=== PATIENT | female | born 1945 | race Caucasian/White ===

== ENCOUNTER 2018-09-19 05:11 | Inpatient (IN) | payer MEDICARE, BC ==
[2018-09-19] MEDS ORDERED: METHYLPREDNISOLONE PF 125MG/VIAL IVP ONE (05:26)
--- NOTE | 2018-09-19 05:30 | Emergency Department Record ---
History of Present Illness - General Chief Complaint: Shortness of breath Stated Complaint: COPD Time Seen by Provider: 09/19/18 05:23 Source: Patient, EMS Mode of Arrival: Ambulatory Limitations: No limitations - History of Present Illness Initial Comments: 73 yo female presents to ED for evaluation of difficulty in breathing symptoms which began this morning. Patient reports wet cough, denies fevers/chills. Patient reports previous history of COPD, stopped smoking 1 months ago. Patient denies chest discomfort or pain symptoms. Patient denies lower extremity edema/calf pain, denies history of COPD. MD Complaint: Shortness of breath Onset/Timin -: Days(s) Severity: Moderate Quality: Aching Consistency: Constant Improves With: Nothing Worsens With: Lying flat Known History Of: COPD Associated Symptoms: Cough Treatments Prior to Arrival: Oxygen - Related Data Home Oxygen Therapy: No Home Medications Medication Instructions Recorded Confirmed Last Taken Amlodipine Besylate [Norvasc] 5 mg PO DAILY 09/19/18 09/19/18 Unknown Atorvastatin Calcium 40 mg PO DAILY 09/19/18 09/19/18 Unknown Fluticasone Propion/Salmeterol 2 puff INH DAILY 09/19/18 09/19/18 Unknown [Fluticasone-Salmeterol 250-50] Pramipexole Di-HCl [Mirapex] 0.25 mg PO DAILY 09/19/18 09/19/18 Unknown Tiotropium [place] [Spiriva 1 puff INH DAILY 09/19/18 09/19/18 Unknown Respimat] Allergies Allergy/AdvReac Type Severity Reaction Status Date / Time amoxicillin [From Augmentin] AdvReac "thrush" Verified 09/19/18 05:14 clavulanic acid AdvReac "thrush" Verified 09/19/18 05:14 [From Augmentin] Travel Screening - Travel/Exposure Within Last 30 Days Have you traveled within the last 30 days?: No Review of Systems Constitutional: Denies: Chills, Fever, Malaise, Night sweats Eyes: Denies: Eye discharge, Eye pain ENT: Denies: Congestion, Ear pain, Epistaxis Respiratory: Reports: Cough, Dyspnea Cardiovascular: Denies: Chest pain, Dyspnea on exertion, Edema, Palpitations Endocrine: Denies: Fatigue, Heat or cold intolerance Gastrointestinal: Denies: Abdominal pain, Nausea, Vomiting Genitourinary: Denies: Incontinence, Retention Musculoskeletal: Denies: Arthralgia, Back pain Skin: Denies: Bruising, Change in color Neurological: Denies: Abnormal gait, Confusion, Headache, Seizure Psychiatric: Denies: Anxiety Hematological/Lymphatic: Denies: Anemia, Blood Clots Past Medical History - SOCIAL HISTORY Smoking Status: Former smoker Alcohol Use: None Drug Use: None - RESPIRATORY Hx Respiratory Disorders: Yes Hx COPD: Yes - CARDIOVASCULAR Hx Cardio Disorders: Yes Hx Hypertension: Yes - NEURO Hx Neuro Disorders: No - GI Hx GI Disorders: Yes Hx Abdominal Pain: Yes Hx Reflux: Yes Hx Ulcer: Yes Hx of Polyps: Yes - Hx Genitourinary Disorders: No - ENDOCRINE Hx Endocrine Disorders: No - MUSCULOSKELETAL Hx Musculoskeletal Disorders: Yes Hx Arthritis: Yes Hx Back Injury: Yes Hx Musculoskeletal Disease: Yes - PSYCH Hx Psych Problems: Yes Hx Depression: Yes - HEMATOLOGY/ONCOLOGY Hx Hematology/Oncology Disorders: No Family Medical History Any Significant Family History?: Yes Hx Diabetes: Grandparents Hx HTN: Father Hx Stroke: Father Physical Exam - General General Appearance: Alert, Oriented x3, Cooperative, Moderate distress Limitations: No limitations - Head Head exam: Atraumatic, Normocephalic, Normal inspection Head exam detail: negative: Abrasion, Contusion, Mishra's sign, General tenderness, Hematoma, Laceration - Eye Eye exam: Normal appearance. negative: Conjunctival injection, Periorbital swelling, Periorbital tenderness, Scleral icterus - ENT Ear exam: negative: Auricular hematoma, Auricular trauma Nasal Exam: negative: Active bleeding, Discharge, Dried blood, Foreign body Mouth exam: negative: Drooling, Laceration, Muffled voice, Tongue elevation - Neck Neck exam: Normal inspection. negative: Meningismus, Tenderness - Respiratory Respiratory exam: Decreased breath sounds, Respiratory distress. negative: Rhonchi, Stridor, Wheezes - Cardiovascular Cardiovascular Exam: Normal rhythm, Normal heart sounds, Tachycardia - GI/Abdominal GI/Abdominal exam: Soft. negative: Rebound, Rigid, Tenderness - Rectal Rectal exam: Deferred - exam: Deferred - Extremities Extremities exam: Normal inspection. negative: Pedal edema, Tenderness - Back Back exam: Denies: CVA tenderness (R), CVA tenderness (L) - Neurological Neurological exam: Alert, Normal gait, Oriented X3 - Psychiatric Psychiatric exam: Normal affect, Normal mood - Skin Skin exam: Normal color. negative: Abrasion Type of lesion: negative: abrasion Course Vital Signs 09/19/18 05:13 Temperature 98.6 F Pulse Rate 101 H Respiratory 24 Rate Blood Pressure 145/73 Pulse Ox 86 L - Reevaluation(s) Reevaluation #1: 09/19/18 06:16 Laboratory studies were reviewed and appear grossly unremarkable for an acute process. CXR: No acute process Patient was updated on all results, will admit for hypoxia resulting likely from COPD exacerbation. Reevaluation #2: 09/19/18 06:25 EKG: NSR 97 Normal axis Normal intervals No acute ST-T wave changes present Patient was updated on all results, will admit for further evaluation and treatment. Case was discussed with Lisa Mckinnon NP, will accept admission at this time. Medical Decision Making - Lab Data Result diagrams: 09/19/18 05:20 09/19/18 05:20 Disposition Disposition: Admit Clinical Impression: COPD exacerbation, Hypoxia Disposition: Still a Patient at [facility] Decision to Admit: Admit from ER Decision to Admit Date: 09/19/18 Decision to Admit Time: 06:18 Condition: (2) Stable Forms: Patient Portal Access Time of Disposition: 06:18 Quality - Quality Measures Quality Measures: N/A - Blood Pressure Screening Does Patient Have Any of the Following: Active Dx of HTN Blood Pressure Classification: Hypertensive Reading Systolic Measurement: 145 Diastolic Measurement: 73 Screening for High Blood Pressure: Patient Exclusion, Hx of HTN [[id number]]
[2018-09-19 05:32] LABS: ABSOLUTE NEUTROPHIL COUNT 5.06; BASO % 0.4 % (0-6); EOS % 0.1 % (0-6); GRAN % 71.8 % (47-80); HEMATOCRIT 44.8 % (35.0-47.0); HEMOGLOBIN 14.5 gm/dl (11.6-16.0); LYMPH % 14.8 % (16-45); MEAN CELL VOLUME 97.4 fl (81-97); MEAN CORPUSCULAR HEMOGLOBIN 31.5 pg (27-33); MEAN CORPUSCULAR HGB CONC 32.4 g/dl (32-36); MEAN PLATELET VOLUME 13.3 fl (7.4-10.4); MONO % 12.9 % (0-9); PLATELET COUNT 119 K/uL (130-400); RED CELL DISTRIBUTION WIDTH 14.4 % (11.5-14.5); WHITE BLOOD COUNT W/O DIFF 7.1 K/uL (4.2-12.2)
[2018-09-19] MEDS: IPRATROPIUM/ALBUTEROL (0.5MG/3MG) NEB INH SCH ×7 (05:36→22:22)
[2018-09-19 05:43] LABS: BLOOD UREA NITROGEN 11 mg/dL (8-23); CREATININE 0.7 mg/dL (0.5-0.9); EST GLOMERULAR FILTRATION RATE > 60 mL/min; TOTAL PROTEIN 7.1 g/dL (6.6-8.7)
[2018-09-19 05:45] LABS: GLUCOSE,RANDOM 123 mg/dL (74-109)
[2018-09-19 05:48] LABS: ALB/GLOB RATIO 1.3 (1.1-1.8); ALKALINE PHOSPHATASE 84 U/L (35-104); ALT/SGPT 12 U/L (<33); AST/SGOT 18 U/L (10.0-35.0)
[2018-09-19] MEDS ORDERED: ACETAMINOPHEN PO PRN (07:47)
[2018-09-19] MEDS ORDERED: TRAMADOL HCL PO PRN (07:47)
[2018-09-19] MEDS ORDERED: ALBUTEROL SULFATE (0.083%) 2.5 MG/3 ML NEB INH PRN (07:47)
[2018-09-19] MEDS: 0.9 % SODIUM CHLORIDE 1000ML 1,000 ML IV PRN ×2 (07:54→15:58)
[2018-09-19] MEDS: PANTOPRAZOLE SODIUM 40 MG TABLET PO SCH (09:58)
[2018-09-19] MEDS ORDERED: BREO (FLUTICASONE/VILANTEROL) 200MCG/25MCG INHALER INH SCH (10:00)
[2018-09-19] MEDS ORDERED: AMLODIPINE BESYLATE 5MG TAB PO SCH (10:00)
[2018-09-19] MEDS ORDERED: ATORVASTATIN 20 MG TABLET PO SCH (10:00)
[2018-09-19] MEDS ORDERED: UMECLIDINIUM BROMIDE (INCRUSE) 62.5MCG IH SCH (10:00)
--- NOTE | 2018-09-19 12:24 | RADIOLOGY REPORT ---
EXAM: CHEST, TWO VIEWS HISTORY: DIFFICULTY IN BREATHING. COUGH AND CONGESTION. TECHNIQUE: Upright PA and lateral views of the chest were obtained. Comparison: Left ribs with PA chest dated 11/02/14. FINDINGS: The heart is not enlarged and the pulmonary vasculature is nondilated. The thoracic aorta remains tortuous and atherosclerotic, not grossly changed given differences in technique. The lungs appear mildly hyperinflated. Minor reticular opacity prominence is questioned in the lateral lung bases likely relating to mild chronic interstitial change. No lung consolidation, costophrenic angle blunting or pneumothorax. There are compression deformities scattered throughout the thoracic spine. These do not appear grossly changed since prior CT thoracic spine examination dated 08/25/18. IMPRESSION: 1. HYPERINFLATION OF THE LUNGS REDEMONSTRATED CONSISTENT WITH COPD. NO CONVINCING EVIDENCE OF AN ACUTE INTRATHORACIC PROCESS. 2. TORTUOUS ATHEROSCLEROTIC THORACIC AORTA REDEMONSTRATED. 3. COMPRESSION DEFORMITIES OF MULTIPLE THORACIC VERTEBRAL BODIES REDEMONSTRATED, NO GROSSLY CHANGED SINCE 08/25/18 CT THORACIC SPINE EXAMINATION. JOB NUMBER: [id number] [facility]
[2018-09-19] MEDS: BENZONATATE 100 MG CAPSULE PO PRN (13:27)
--- NOTE | 2018-09-19 17:31 | History & Physical ---
History of Present Illness - Date of Service Date of Service for History & Physical: 09/19/18 - History of Present Illness Admitting Diagnosis: COPD exacerbation. Hypoxia History of Present Illness: Kim Garcia is a 73 y.o. F who presented to the ED d/t DMITRY which began in the morning on 09/18/18. Reported that she had a wet cough with lots of sputum and a sore throat as well. Denied fever/chills. Hx of COPD with 1 exacerbation in the past, stopped smoking 1 month ago. Does not follow with a play reader. Does not use home oxygen or nebulizers. Denies having been around any known sick contacts. Of note, pt states that she does have a thoracic aortic aneurysm that her PCP is watching. States she was to have a "bunch of CT scans" done today as ordered by PCP. PMHx: COPD, HTN, Thoracic aortic aneurysm, GERD, OA. PCP: Dr. Bruner ED Course Vitals: T 98.6, HR 101, RR 24, BP 145/73, SPO2 86% on RA CXR: Hyperinflation, c/w COPD Labs: Unremarkable. WBC 7.1, GFR >60, Trops Neg. EKG: NSR, no acute ST-T wave changes present 09/19/18 1730 Vitals: T 99.4, HR 89, BP 123/67, RR 20, SpO2 92% on 3L NC Sitting in bed, eating dinner. A&Ox3. Reports that she feels just slightly better than she did earlier today and yesterday. Refusing to take Norvasc and Lipitor as she was recently placed on these by her PCP and feels that these are causing her problems. Wants to go home but SPO2 92% on 3L O2. Reports that cough is dry right now, hasn't been coughing anything up since coming to the unit. Doesn't feel any nasal congestion. Travel Screening - Travel/Exposure Within Last 30 Days Have you traveled within the last 30 days?: No - Travel/Exposure Within Last Year Have you traveled outside the [place] in the last year?: No - Additonal Travel Details Have you been exposed to anyone with a communicable illness?: No Review of Systems Reviewed: No additional complaints except as noted below Constitutional: Denies: Chills, Fever, Malaise, Night sweats Eyes: Denies: Eye discharge, Eye pain ENT: Denies: Congestion, Ear pain, Epistaxis Respiratory: Reports: Cough, Dyspnea Cardiovascular: Denies: Chest pain, Dyspnea on exertion, Edema, Palpitations Endocrine: Denies: Fatigue, Heat or cold intolerance Gastrointestinal: Denies: Abdominal pain, Nausea, Vomiting Genitourinary: Denies: Incontinence, Retention Musculoskeletal: Denies: Arthralgia, Back pain Skin: Denies: Bruising, Change in color Neurological: Denies: Abnormal gait, Confusion, Headache, Seizure Psychiatric: Denies: Anxiety Hematological/Lymphatic: Denies: Anemia, Blood Clots Past Medical History - SOCIAL HISTORY Smoking Status: Former smoker - RESPIRATORY Hx Respiratory Disorders: Yes Hx COPD: Yes - CARDIOVASCULAR Hx Cardio Disorders: Yes Hx Hypertension: Yes - NEURO Hx Neuro Disorders: No - GI Hx GI Disorders: Yes Hx Abdominal Pain: Yes Hx Reflux: Yes Hx Ulcer: Yes Hx of Polyps: Yes - Hx Genitourinary Disorders: No - ENDOCRINE Hx Endocrine Disorders: No - MUSCULOSKELETAL Hx Musculoskeletal Disorders: Yes Hx Arthritis: Yes Hx Back Injury: Yes Hx Musculoskeletal Disease: Yes - PSYCH Hx Psych Problems: Yes Hx Depression: Yes - HEMATOLOGY/ONCOLOGY Hx Hematology/Oncology Disorders: No Family Medical History Any Significant Family History?: Yes Hx Diabetes: Grandparents Hx HTN: Father Hx Stroke: Father H&P Meds/Allergies - Allergies Allergies: Allergies Allergy/AdvReac Type Severity Reaction Status Date / Time amoxicillin [From Augmentin] AdvReac "thrush" Verified 09/19/18 05:14 clavulanic acid AdvReac "thrush" Verified 09/19/18 05:14 [From Augmentin] - Home Medications Home Medications Medication Instructions Recorded Confirmed Last Taken Amlodipine Besylate [Norvasc] 5 mg PO DAILY 09/19/18 09/19/18 Unknown Atorvastatin Calcium 40 mg PO DAILY 09/19/18 09/19/18 Unknown Fluticasone Propion/Salmeterol 2 puff INH DAILY 09/19/18 09/19/18 Unknown [Fluticasone-Salmeterol 250-50] Pramipexole Di-HCl [Mirapex] 0.25 mg PO DAILY 09/19/18 09/19/18 Unknown Tiotropium [place] [Spiriva 1 puff INH DAILY 05/17/19 05/17/19 Unknown Respimat] - Active Medications Active Medications: Current Medications Albuterol Sulfate (Albuterol Sulfate) 2.5 mg INH RESP.Q2H PRN PRN Reason: DIFFICULTY IN BREATHING Albuterol/Ipratropium (Duoneb) 3 ml INH RESP.Q4H.[facility] Last Admin: 09/19/18 14:06 Dose: 3 ml Documented by: Amlodipine Besylate (Norvasc) 5 mg PO QHS [facility] Atorvastatin Calcium (Lipitor) 40 mg PO QHS [facility] Benzonatate (Tessalon) 100 mg PO TID PRN PRN Reason: COUGH Last Admin: 09/19/18 13:27 Dose: 100 mg Documented by: Sodium Chloride () 1,000 mls @ 100 mls/hr IV .Q10H PRN PRN Reason: LARGE VOLUME IV Last Admin: 09/19/18 15:58 Dose: 100 mls/hr Documented by: Methylprednisolone Sodium Succinate (Solu-Medrol) 60 mg IVP DAILY [facility] Pantoprazole Sodium (Protonix) 40 mg PO DAILYAC [facility] Last Admin: 09/19/18 09:58 Dose: 40 mg Documented by: Pramipexole Dihydrochloride (Pramipexole Dihydrochloride) 0.25 mg PO QHS [facility] Tramadol HCl (Ultram) 50 mg PO Q6H PRN PRN Reason: PAIN - MILD TO MODERATE (1-7) Physical Exam - Vital Signs Vital Signs: Vital Signs - Last 24 Hrs Temp Pulse Pulse Resp BP BP Pulse Ox 09/19/18 14:06 88 18 93 L 09/19/18 11:08 88 18 92 L 09/19/18 10:22 81 20 95 09/19/18 07:47 99.4 F 89 20 123/67 92 L 09/19/18 07:46 89 20 93 L 09/19/18 06:30 98 H 20 130/80 95 09/19/18 05:45 88 24 117/76 93 L 09/19/18 05:36 102 H 12 94 L 09/19/18 05:13 98.6 F 101 H 24 145/73 86 L - General General Appearance: Alert, Oriented x3, Cooperative, Mild distress (speaking in multiple word sentences with ease) Limitations: No limitations - Head Head exam: Atraumatic, Normocephalic, Normal inspection Head exam detail: negative: Abrasion, Contusion, Mishra's sign, General tenderness, Hematoma, Laceration - Eye Eye exam: Normal appearance. negative: Conjunctival injection, Periorbital swelling, Periorbital tenderness, Scleral icterus - ENT Ear exam: negative: Auricular hematoma, Auricular trauma Nasal Exam: negative: Active bleeding, Discharge, Dried blood, Foreign body Mouth exam: negative: Drooling, Laceration, Muffled voice, Tongue elevation - Neck Neck exam: Normal inspection. negative: Meningismus, Tenderness - Respiratory Respiratory exam: Decreased breath sounds, Wheezes (RUL). negative: Rhonchi, Stridor - Cardiovascular Cardiovascular Exam: Normal rhythm, Normal heart sounds - GI/Abdominal GI/Abdominal exam: Soft. negative: Rebound, Rigid, Tenderness - Rectal Rectal exam: Deferred - exam: Deferred - Extremities Extremities exam: Normal inspection. negative: Pedal edema, Tenderness - Back Back exam: Denies: CVA tenderness (R), CVA tenderness (L) - Neurological Neurological exam: Alert, Normal gait, Oriented X3 - Psychiatric Psychiatric exam: Normal affect, Normal mood - Skin Skin exam: Normal color. negative: Abrasion Type of lesion: negative: abrasion Results - Labs Result Diagrams: 09/19/18 05:20 09/19/18 05:20 Labs Last 24 Hours: Laboratory Results - last 24 hr 09/19/18 09/19/18 05:20 05:20 WBC 7.1 RBC 4.60 Hgb 14.5 Hct 44.8 MCV 97.4 H MCH 31.5 MCHC 32.4 RDW 14.4 Plt Count 119 L MPV 13.3 H Gran % 71.8 Lymphocytes % 14.8 L Monocytes % 12.9 H Eosinophils % 0.1 Basophils % 0.4 Absolute Neutrophils 5.06 Sodium 139 Potassium 4.0 Chloride 98 Carbon Dioxide 29.0 Anion Gap 12.0 BUN 11 Creatinine 0.7 Estimated GFR > 60 Random Glucose 123 H Calcium 8.8 Total Bilirubin 0.60 AST 18 ALT 12 Alkaline Phosphatase 84 Troponin T < 0.010 Total Protein 7.1 Albumin 4.0 Globulin 3.1 Albumin/Globulin Ratio 1.3 VTE H&P Assessment - Risk for VTE Risk for VTE: Yes Risk Level: High Risk Assessment Date: 09/19/18 Risk Assessment Time: 17:30 VTE Orders Placed or Will Be Placed: Yes Plan - Detailed Diagnosis and Plan (1) COPD exacerbation Current Visit: Yes Status: Acute Base Code: J44.1 - CHRONIC OBSTRUCTIVE PULMONARY DISEASE W (ACUTE) EXACERBATION Comment: 09/19/18 -SpO2 86% on RA in ER now 92% on 3L NC -CXR: Hyperinflation c/w COPD -Duonebs per RT q. 4 hours while awake -Pulmicort BID per RT -No increased mucus production or purulence at this time, on dyspnea and hypoxia. -No indication for antibiotic at this time -IV Solumedrol 125mg daily (2) Hypoxia Current Visit: Yes Status: Acute Base Code: R09.02 - HYPOXEMIA Comment: 09/19/18 -86% RA on arrival to ED -92% on 3L NC -No home oxygen -Continue nebulizers, IV steroids and working to wean down off of O2 (3) Dry cough Current Visit: Yes Status: Acute Base Code: R05 - COUGH Comment: 09/19/18 -CXR: No acute process -WBC 7.1 -Tessalon Perles 100mg PO TID PRN (4) Full code status Current Visit: Yes Status: Acute Base Code: Z78.9 - OTHER SPECIFIED HEALTH STATUS Comment: 09/19/18 -Full code this admission (5) DVT prophylaxis Current Visit: Yes Status: Acute Base Code: Z29.9 - ENCOUNTER FOR PROPHYLACTIC MEASURES, UNSPECIFIED Comment: 09/19/18 -High risk d/t age and comorbidities -Nursing to encourage ambulation -SCDs while in bed
[2018-09-19] MEDS ORDERED: BUDESONIDE 0.5 MG/2 ML INH SCH (18:00)
[2018-09-19] MEDS: BUDESONIDE 0.5 MG/2 ML INH SCH (21:40)
[2018-09-19] MEDS: AMLODIPINE BESYLATE 5MG TAB PO SCH (22:18)
[2018-09-19] MEDS: PRAMIPEXOLE DI-HCL 0.25 MG TABLET PO SCH (22:18)
[2018-09-19] MEDS: ATORVASTATIN 20 MG TABLET PO SCH (22:18)
[2018-09-20] MEDS: PANTOPRAZOLE SODIUM 40 MG TABLET PO SCH (06:47)
[2018-09-20] MEDS: IPRATROPIUM/ALBUTEROL (0.5MG/3MG) NEB INH SCH ×5 (07:37→22:53)
[2018-09-20] MEDS ORDERED: METHYLPREDNISOLONE PF 125MG/VIAL IVP SCH ×2 (10:00)
[2018-09-20] MEDS ORDERED: METHYLPREDNISOLONE PF 125MG/VIAL IVP ONE (10:00)
[2018-09-20] MEDS: BUDESONIDE 0.5 MG/2 ML INH SCH ×2 (11:13→22:56)
[2018-09-20] MEDS: CEFTRIAXONE 1GM/50ML BAG IVPB SCH (12:47)
--- NOTE | 2018-09-20 16:10 | Physician Progress Note ---
Subjective - Date Date of Physician Progress Note: 09/20/18 - Subjective Subjective Comment: Sitting up at edge of bed. Daughter and sister at bedside. Reports that her work of breathing has decreased as the day has gone on, but it has not returned to baseline. Was recommended to try Bipap today for which she refused. Continues to have dry cough, not coughing up mucus although does state she has a runny nose. Denies having any pain. Restless legs are bothering her more than anything as she states she is not used to "sitting around and not doing anything." Pt ambulated in fox with RT using walker. O2 sats 92% on 2L during ambulation. Had increased work of breathing. Objective - Multidiciplinary Team Multidiciplinary Team: Nursing, RT - Vital Signs Vital Signs: Vital Signs - Last 24 Hrs Temp Pulse Pulse Resp BP Pulse Ox 09/20/18 13:41 94 H 18 94 L 09/20/18 13:24 91 H 18 96 09/20/18 12:00 97.0 F L 90 22 140/71 94 L 09/20/18 09:00 18 09/20/18 08:48 18 09/20/18 07:37 89 18 96 09/20/18 04:00 97 09/19/18 23:00 98.3 F 97 H 24 128/62 89 L 09/19/18 22:23 92 H 91 H 91 L 09/19/18 18:18 85 20 96 - General General Appearance: Alert, Oriented x3, Cooperative, Mild distress (with ambulation) Limitations: No limitations - Head Head exam: Atraumatic, Normocephalic, Normal inspection Head exam detail: negative: Abrasion, Contusion, Mishra's sign, General tenderness, Hematoma, Laceration - Eye Eye exam: Normal appearance. negative: Conjunctival injection, Periorbital swel ling, Periorbital tenderness, Scleral icterus - ENT Ear exam: negative: Auricular hematoma, Auricular trauma Nasal Exam: negative: Active bleeding, Discharge, Dried blood, Foreign body Mouth exam: negative: Drooling, Laceration, Muffled voice, Tongue elevation - Neck Neck exam: Normal inspection. negative: Meningismus, Tenderness - Respiratory Respiratory exam: Decreased breath sounds, Wheezes. negative: Rhonchi, Stridor - Cardiovascular Cardiovascular Exam: Normal rhythm, Normal heart sounds - GI/Abdominal GI/Abdominal exam: Soft. negative: Rebound, Rigid, Tenderness - Rectal Rectal exam: Deferred - exam: Deferred - Extremities Extremities exam: Normal inspection. negative: Pedal edema, Tenderness - Back Back exam: Denies: CVA tenderness (R), CVA tenderness (L) - Neurological Neurological exam: Alert, Normal gait, Oriented X3 - Psychiatric Psychiatric exam: Normal affect, Normal mood - Skin Skin exam: Normal color. negative: Abrasion Type of lesion: negative: abrasion Assessment and Plan - Assessment and Plan (1) COPD exacerbation Current Visit: Yes Status: Acute Base Code: J44.1 - CHRONIC OBSTRUCTIVE PULMONARY DISEASE W (ACUTE) EXACERBATION Comment: 09/20/18 -Able to ambulate with O2 @ 2L, SPO2 sats 92% -Duonebs per RT q. 4 hours while awake -Pulmicort BID per RT -Recommended Bipap, pt declined -No increased mucus production or purulence at this time, put continued increase work of breathing, wheezing and requirement for O2 -IV Solumedrol 125mg today, decrease to 60mg IV tomorrow -Rocephin 1 g IV daily (2) Hypoxia Current Visit: Yes Status: Acute Base Code: R09.02 - HYPOXEMIA Comment: 09/20/18 -86% RA on arrival to ED -92% on 2L with ambulation -No home oxygen -Recommend Bipap therapy, pt refused -Continue nebulizers, IV steroids, IV antibiotics and working to wean down off of O2 (3) Dry cough Current Visit: Yes Status: Acute Base Code: R05 - COUGH Comment: 09/20/18 -Continue Tessalon Perles 100mg PO TID PRN (4) Full code status Current Visit: Yes Status: Acute Base Code: Z78.9 - OTHER SPECIFIED HEALTH STATUS Comment: 09/20/18 -Full code this admission (5) DVT prophylaxis Current Visit: Yes Status: Acute Base Code: Z29.9 - ENCOUNTER FOR PROPHYLACTIC MEASURES, UNSPECIFIED Comment: 09/20/18 -High risk d/t age and comorbidities -Nursing to encourage ambulation -SCDs while in bed Results - Labs Result Diagrams: 09/19/18 05:20 09/19/18 05:20 DVT/PE Assessment - Risk for VTE Risk for VTE: No Risk Level: High Risk Assessment Date: 09/19/18 Risk Assessment Time: 17:30 VTE Orders Placed or Will Be Placed: Yes - Active Medicaitons Current Medications: Current Medications Albuterol Sulfate (Albuterol Sulfate) 2.5 mg INH RESP.Q2H PRN PRN Reason: DIFFICULTY IN BREATHING Last Admin: 09/20/18 13:24 Dose: 2.5 mg Documented by: Albuterol/Ipratropium (Duoneb) 3 ml INH RESP.Q4H.[facility] Last Admin: 09/20/18 13:24 Dose: 3 ml Documented by: Amlodipine Besylate (Norvasc) 5 mg PO QHS [facility] Last Admin: 09/19/18 22:18 Dose: Not Given Documented by: Atorvastatin Calcium (Lipitor) 40 mg PO QHS [facility] Last Admin: 09/19/18 22:18 Dose: Not Given Documented by: Benzonatate (Tessalon) 100 mg PO TID PRN PRN Reason: COUGH Last Admin: 09/19/18 13:27 Dose: 100 mg Documented by: Budesonide (Pulmicort) 0.5 mg INH 1000,2200 [facility] Last Admin: 09/20/18 11:13 Dose: Not Given Documented by: Pantoprazole Sodium (Protonix) 40 mg PO DAILYAC [facility] Last Admin: 09/20/18 06:47 Dose: 40 mg Documented by: Pramipexole Dihydrochloride (Pramipexole Dihydrochloride) 0.25 mg PO QHS [facility] Last Admin: 09/19/18 22:18 Dose: Not Given Documented by: Tramadol HCl (Ultram) 50 mg PO Q6H PRN PRN Reason: PAIN - MILD TO MODERATE (1-7) AMI Plan - Labs Result Diagrams: 09/19/18 05:20 09/19/18 05:20
[2018-09-20] MEDS: PRAMIPEXOLE DI-HCL 0.25 MG TABLET PO SCH ×2 (17:05→21:26)
--- NOTE | 2018-09-20 20:31 | Inpatient Certification ---
Inpatient Certification Admit to inpatient care: Based on my medical assessment, after consideration of patient's risk factors (age, co-morbidities and patient presenting symptoms and acuity), I expect that this patient will remain in the hospital greater than or equal to two midnights and that the services needed warrant inpatient care because: Patient Risk Factors: [Age, comorbidities] Estimated length of stay: [48-72 hours] The patient may reasonably be expected to be discharged or transferred to a hospital within 96 hours after admission to [facility]. Services needed: [IV Therapy, Respiratory Services] Post hospital care (if known): [] I certify that my determination is in accordance with my understanding of Medicare requirements for reasonable and necessary inpatient services. 09/20/18 20:30
[2018-09-20] MEDS: ATORVASTATIN 20 MG TABLET PO SCH (21:25)
[2018-09-20] MEDS: AMLODIPINE BESYLATE 5MG TAB PO SCH (21:25)
[2018-09-21] MEDS: BENZONATATE 100 MG CAPSULE PO PRN ×2 (04:44→19:54)
[2018-09-21] MEDS: PANTOPRAZOLE SODIUM 40 MG TABLET PO SCH (06:35)
[2018-09-21] MEDS: IPRATROPIUM/ALBUTEROL (0.5MG/3MG) NEB INH SCH ×6 (07:34→22:33)
[2018-09-21] MEDS: BUDESONIDE 0.5 MG/2 ML INH SCH ×3 (07:43→22:33)
[2018-09-21] MEDS: METHYLPREDNISOLONE PF 125MG/VIAL IVP SCH ×2 (08:49→09:02)
[2018-09-21] MEDS: TRAMADOL HCL 50 MG TABLET PO PRN ×2 (08:51→19:53)
[2018-09-21] MEDS: CEFTRIAXONE 1GM/50ML BAG IVPB SCH (13:36)
--- NOTE | 2018-09-21 15:33 | Physician Progress Note ---
Subjective - Date Date of Physician Progress Note: 09/21/18 - Subjective Subjective Comment: Sitting up at edge of bed. Daughter and sister at bedside. Reports that her work of breathing has decreased as the day has gone on, but it has not returned to baseline. Was recommended to try Bipap today for which she refused. Continues to have dry cough, not coughing up mucus although does state she has a runny nose. 09/20/18 Denies having any pain. Restless legs are bothering her more than anything as she states she is not used to "sitting around and not doing anything." Pt ambulated in fox with RT using walker. O2 sats 92% on 2L during ambulation. Had increased work of breathing. 09/21/18 Reports that she feels well now but that she had a hard time breathing this morning. States that she had diarrhea this a.m. and on her walk back to bed, she became extremely short of breath. RT reports that they were unable to wean off of oxygen. Pt states that she is agreeable to taking 1/2 of Norvasc and Lipitor pills. Doesn't want to take full dose as she thinks the s/e are attributing to her problems but does think she should take some of it d/t her thoracic aortic aneurysm. Reports that she quit smoking however daughter reports that she is still smoking. Objective - Multidiciplinary Team Multidiciplinary Team: Nursing, RT - Vital Signs Vital Signs: Vital Signs - Last 24 Hrs Temp Pulse Pulse Pulse Resp BP Pulse Ox 09/21/18 14:22 89 18 94 L 09/21/18 12:00 98.0 F 83 20 143/69 95 09/21/18 08:59 22 09/21/18 08:41 89 20 95 09/21/18 07:44 79 18 90 L 09/21/18 04:00 98.1 F 91 H 24 164/80 90 L 09/20/18 21:00 90 09/20/18 18:08 81 20 96 09/20/18 18:07 81 18 92 L - General General Appearance: Alert, Oriented x3, Cooperative, Mild distress (with ambulation) Limitations: No limitations - Head Head exam: Atraumatic, Normocephalic, Normal inspection Head exam detail: negative: Abrasion, Contusion, Mishra's sign, General tenderness, Hematoma, Laceration - Eye Eye exam: Normal appearance. negative: Conjunctival injection, Periorbital swelling, Periorbital tenderness, Scleral icterus - ENT Ear exam: negative: Auricular hematoma, Auricular trauma Nasal Exam: negative: Active bleeding, Discharge, Dried blood, Foreign body Mouth exam: negative: Drooling, Laceration, Muffled voice, Tongue elevation - Neck Neck exam: Normal inspection. negative: Meningismus, Tenderness - Respiratory Respiratory exam: Decreased breath sounds. negative: Rhonchi, Stridor - Cardiovascular Cardiovascular Exam: Normal rhythm, Normal heart sounds - GI/Abdominal GI/Abdominal exam: Soft. negative: Rebound, Rigid, Tenderness - Rectal Rectal exam: Deferred - exam: Deferred - Extremities Extremities exam: Normal inspection. negative: Pedal edema, Tenderness - Back Back exam: Denies: CVA tenderness (R), CVA tenderness (L) - Neurological Neurological exam: Alert, Normal gait, Oriented X3 - Psychiatric Psychiatric exam: Normal affect, Normal mood - Skin Skin exam: Normal color. negative: Abrasion Type of lesion: negative: abrasion Assessment and Plan - Assessment and Plan (1) COPD exacerbation Current Visit: Yes Status: Acute Base Code: J44.1 - CHRONIC OBSTRUCTIVE PULMONARY DISEASE W (ACUTE) EXACERBATION Comment: 09/21/18 -Able to ambulate with O2 @ 2L, SPO2 sats 92% -Duonebs per RT q. 4 hours while awake -Pulmicort BID per RT -Recommended Bipap, pt declined -No increased mucus production or purulence at this time, put continued increase work of breathing, wheezing and requirement for O2 -IV Solumedrol 60mg today, will start Prednisone 50mg tomorrow -Rocephin 1 g IV daily -Likely d/c tomorrow, may need to do home qualifier for home O2 (2) Hypoxia Current Visit: Yes Status: Acute Base Code: R09.02 - HYPOXEMIA Comment: 09/21/18 -86% RA on arrival to ED -92% on 2L with ambulation -No home oxygen -Recommend Bipap therapy, pt refused -Continue nebulizers, IV steroids, IV antibiotics and working to wean down off of O2 -Likely D/C tomorrow, may need to consider home qualifer for O2 (3) Dry cough Current Visit: Yes Status: Acute Base Code: R05 - COUGH Comment: 09/21/18 -Continue Tessalon Perles 100mg PO TID PRN (4) Full code status Current Visit: Yes Status: Acute Base Code: Z78.9 - OTHER SPECIFIED HEALTH STATUS Comment: 09/21/18 -Full code this admission (5) DVT prophylaxis Current Visit: Yes Status: Acute Base Code: Z29.9 - ENCOUNTER FOR PROPHYLACTIC MEASURES, UNSPECIFIED Comment: 09/21/18 -High risk d/t age and comorbidities -Nursing to encourage ambulation -SCDs while in bed (6) Thoracic aortic aneurysm Current Visit: Yes Status: Acute Base Code: I71.2 - THORACIC AORTIC A NEURYSM, WITHOUT RUPTURE Comment: 09/21/18 -Discussed need to f/u with PCP to get referral to [facility] (as pt was inquiring on how to do this) -Stated that PCP put her on Norvasc and Lipitor for the aneurysm. Is unwilling to take full dose but will take half. -Changed Lipitor to 20mg q. HS -Changed Norvac to 2.5mg q. HS Results - Labs Result Diagrams: 09/19/18 05:20 09/19/18 05:20 DVT/PE Assessment - Risk for VTE Risk for VTE: Yes Risk Level: High Risk Assessment Date: 09/19/18 Risk Assessment Time: 17:30 VTE Orders Placed or Will Be Placed: Yes - Active Medicaitons Current Medications: Current Medications Albuterol Sulfate (Albuterol Sulfate) 2.5 mg INH RESP.Q2H PRN PRN Reason: DIFFICULTY IN BREATHING Last Admin: 09/20/18 13:24 Dose: 2.5 mg Documented by: Albuterol/Ipratropium (Duoneb) 3 ml INH RESP.Q4H.[facility] Last Admin: 09/21/18 14:22 Dose: 3 ml Documented by: Amlodipine Besylate (Norvasc) 5 mg PO QHS [facility] Last Admin: 09/20/18 21:25 Dose: Not Given Documented by: Atorvastatin Calcium (Lipitor) 40 mg PO QHS [facility] Last Admin: 09/20/18 21:25 Dose: Not Given Documented by: Benzonatate (Tessalon) 100 mg PO TID PRN PRN Reason: COUGH Last Admin: 09/21/18 04:44 Dose: 100 mg Documented by: Budesonide (Pulmicort) 0.5 mg INH 1000,2200 [facility] Last Admin: 09/21/18 09:27 Dose: 0.5 mg Documented by: Pantoprazole Sodium (Protonix) 40 mg PO DAILYAC [facility] Last Admin: 09/21/18 06:35 Dose: 40 mg Documented by: Pramipexole Dihydrochloride (Pramipexole Dihydrochloride) 0.25 mg PO QHS [facility] Last Admin: 09/20/18 21:26 Dose: Not Given Documented by: Tramadol HCl (Ultram) 50 mg PO Q6H PRN PRN Reason: PAIN - MILD TO MODERATE (1-7) Last Admin: 09/21/18 08:51 Dose: 50 mg Documented by: AMI Plan - Labs Result Diagrams: 09/19/18 05:20 09/19/18 05:20
[2018-09-21] MEDS: NICOTINE14 MG/24 HOUR PATCH TD SCH (17:05)
[2018-09-21] MEDS: PRAMIPEXOLE DI-HCL 0.25 MG TABLET PO SCH ×2 (17:06→21:08)
[2018-09-21] MEDS: AMLODIPINE BESYLATE 5MG TAB PO SCH ×2 (17:12→18:00)
[2018-09-21] MEDS: NYSTATIN 100,000 UNITS/ML 5ML CUP PO SCH ×2 (17:59→21:08)
[2018-09-21] MEDS: ATORVASTATIN 20 MG TABLET PO SCH (21:09)
[2018-09-22] MEDS: IPRATROPIUM/ALBUTEROL (0.5MG/3MG) NEB INH SCH ×5 (05:39→21:49)
[2018-09-22] MEDS: PANTOPRAZOLE SODIUM 40 MG TABLET PO SCH (06:04)
[2018-09-22 06:32] LABS: HEMOGLOBIN 14.5 gm/dl (11.6-16.0); MEAN CELL VOLUME 99.4 fl (81-97); MEAN CORPUSCULAR HEMOGLOBIN 30.7 pg (27-33); MEAN CORPUSCULAR HGB CONC 30.9 g/dl (32-36); MEAN PLATELET VOLUME 12.7 fl (7.4-10.4); PLATELET COUNT 127 K/uL (130-400); RED BLOOD COUNT 4.73 M/uL (3.80-5.40); RED CELL DISTRIBUTION WIDTH 14.1 % (11.5-14.5); WHITE BLOOD COUNT W/O DIFF 9.3 K/uL (4.2-12.2)
[2018-09-22 06:46] LABS: BLOOD UREA NITROGEN 15 mg/dL (8-23); CREATININE 0.5 mg/dL (0.5-0.9); EST GLOMERULAR FILTRATION RATE > 60 mL/min; GLUCOSE,RANDOM 95 mg/dL (74-109)
[2018-09-22 07:06] LABS: ABSOLUTE NEUTROPHIL COUNT 5.83; PLATELET ESTIMATE NORMAL (NORMAL)
[2018-09-22] MEDS: TRAMADOL HCL 50 MG TABLET PO PRN ×2 (07:50→18:58)
[2018-09-22] MEDS: PREDNISONE 20 MG TAB PO SCH (07:52)
[2018-09-22] MEDS: BUDESONIDE 0.5 MG/2 ML INH SCH ×2 (09:36→21:49)
[2018-09-22] MEDS: NYSTATIN 100,000 UNITS/ML 5ML CUP PO SCH ×3 (10:04→18:57)
[2018-09-22] MEDS: AMLODIPINE BESYLATE 5MG TAB PO SCH ×2 (10:04→18:58)
[2018-09-22] MEDS: CEFTRIAXONE 1GM/50ML BAG IVPB SCH (13:34)
--- NOTE | 2018-09-22 13:41 | Physician Progress Note ---
Subjective - Date Date of Physician Progress Note: 09/22/18 - Subjective Subjective Comment: Sitting up at edge of bed. Daughter and sister at bedside. Reports that her work of breathing has decreased as the day has gone on, but it has not returned to baseline. Was recommended to try Bipap today for which she refused. Continues to have dry cough, not coughing up mucus although does state she has a runny nose. 09/20/18 Denies having any pain. Restless legs are bothering her more than anything as she states she is not used to "sitting around and not doing anything." Pt ambulated in fox with RT using walker. O2 sats 92% on 2L during ambulation. Had increased work of breathing. 09/21/18 Reports that she feels well now but that she had a hard time breathing this morning. States that she had diarrhea this a.m. and on her walk back to bed, she became extremely short of breath. RT reports that they were unable to wean off of oxygen. Pt states that she is agreeable to taking 1/2 of Norvasc and Lipitor pills. Doesn't want to take full dose as she thinks the s/e are attributing to her problems but does think she should take some of it d/t her thoracic aortic aneurysm. Reports that she quit smoking however daughter reports that she is still smoking. 09/22/18 Continues to report that she does not feel safe going home alone. Still feeling SOB at times and very fatigued. Ambulated with RT without oxygen and had to be put back on oxygen d/t desaturation to 85%. Denies having any pain. Objective - Multidiciplinary Team Multidiciplinary Team: Nursing, RT - Vital Signs Vital Signs: Vital Signs - Last 24 Hrs Temp Pulse Pulse Resp BP Pulse Ox 09/22/18 09:37 89 18 09/22/18 08:03 16 09/22/18 07:51 97.9 F 83 16 147/82 96 09/22/18 05:41 75 18 98 09/22/18 05:40 82 18 96 09/22/18 04:00 98.0 F 79 22 128/75 94 L 09/21/18 21:00 24 09/21/18 20:00 97.5 F L 82 24 160/85 97 09/21/18 19:06 84 18 92 L 09/21/18 14:22 89 18 94 L - General General Appearance: Alert, Oriented x3, Cooperative, Mild distress (with ambulation) Limitations: No limitations - Head Head exam: Atraumatic, Normocephalic, Normal inspection Head exam detail: negative: Abrasion, Contusion, Mishra's sign, General tenderness, Hematoma, Laceration - Eye Eye exam: Normal appearance. negative: Conjunctival injection, Periorbital swelling, Periorbital tenderness, Scleral icterus - ENT Ear exam: negative: Auricular hematoma, Auricular trauma Nasal Exam: negative: Active bleeding, Discharge, Dried blood, Foreign body Mouth exam: negative: Drooling, Laceration, Muffled voice, Tongue elevation - Neck Neck exam: Normal inspection. negative: Meningismus, Tenderness - Respiratory Respiratory exam: Wheezes. negative: Rhonchi, Stridor - Cardiovascular Cardiovascular Exam: Normal rhythm, Normal heart sounds - GI/Abdominal GI/Abdominal exam: Soft. negative: Rebound, Rigid, Tenderness - Rectal Rectal exam: Deferred - exam: Deferred - Extremities Extremities exam: Normal inspection. negative: Pedal edema, Tenderness - Back Back exam: Denies: CVA tenderness (R), CVA tenderness (L) - Neurological Neurological exam: Alert, Normal gait, Oriented X3 - Psychiatric Psychiatric exam: Normal affect, Normal mood - Skin Skin exam: Normal color. negative: Abrasion Type of lesion: negative: abrasion Assessment and Plan - Assessment and Plan (1) COPD exacerbation Current Visit: Yes Status: Acute Base Code: J44.1 - CHRONIC OBSTRUCTIVE PULMONARY DISEASE W (ACUTE) EXACERBATION Comment: 09/22/18 -SpO2 dropped to 85% when ambulating short distance on RA -At rest, maintaining O2 at 96% on 2L -Duonebs per RT q. 4 hours while awake -Pulmicort BID per RT -Recommended Bipap, pt declined -No increased mucus production or purulence at this time, put continued increase work of breathing, wheezing and requirement for O2 -Prednisone PO daily -Rocephin 1 g IV daily -Home O2 Qualifier completed -Needs nebulizer machine and Duo-nebs (2) Hypoxia Current Visit: Yes Status: Acute Base Code: R09.02 - HYPOXEMIA Comment: 09/22/18 -86% RA on arrival to ED -85% on RA with ambulation -Home O2 qualifier completed -Continue nebulizers q. 4 hours while awake -D/c on 09/23/18 with [facility] (3) Dry cough Current Visit: Yes Status: Acute Base Code: R05 - COUGH Comment: 09/22/18 -Continue Tessalon Perles 100mg PO TID PRN (4) Full code status Current Visit: Yes Status: Acute Base Code: Z78.9 - OTHER SPECIFIED HEALTH STATUS Comment: 09/22/18 -Full code this admission (5) DVT prophylaxis Current Visit: Yes Status: Acute Base Code: Z29.9 - ENCOUNTER FOR PROPHYL ACTIC MEASURES, UNSPECIFIED Comment: 09/22/18 -High risk d/t age and comorbidities -Ambulating frequently -SCDs while in bed (6) Thoracic aortic aneurysm Current Visit: Yes Status: Acute Base Code: I71.2 - THORACIC AORTIC ANEURYSM, WITHOUT RUPTURE Comment: 09/22/18 -Discussed need to f/u with PCP to get referral to [facility] (as pt was inquiring on how to do this) -Stated that PCP put her on Norvasc and Lipitor for the aneurysm. Is unwilling to take full dose but will take half. -Changed Lipitor to 20mg q. HS -Changed Norvac to 2.5mg q. HS -F/u set with Dr. Bruner per social work Results - Labs Result Diagrams: 09/22/18 06:12 09/22/18 06:12 Labs Last 24 Hours: Laboratory Results - last 24 hr 09/22/18 09/22/18 06:12 06:12 WBC 9.3 RBC 4.73 Hgb 14.5 Hct 47.0 MCV 99.4 H MCH 30.7 MCHC 30.9 L RDW 14.1 Plt Count 127 L MPV 12.7 H Neutrophils % 63.0 Eosinophils % Not Reportable Basophils % Not Reportable Absolute Neutrophils 5.83 Lymphocytes 28.0 Monocytes 9.0 Platelet Estimate Normal RBC Morphology Normal Sodium 141 Potassium 4.2 Chloride 98 Carbon Dioxide 36.0 H Anion Gap 7.0 BUN 15 Creatinine 0.5 Estimated GFR > 60 Random Glucose 95 Calcium 9.0 DVT/PE Assessment - Risk for VTE Risk for VTE: No Risk Level: High Risk Assessment Date: 09/19/18 Risk Assessment Time: 17:30 VTE Orders Placed or Will Be Placed: Yes - Active Medicaitons Current Medications: Current Medications Albuterol Sulfate (Albuterol Sulfate) 2.5 mg INH RESP.Q2H PRN PRN Reason: DIFFICULTY IN BREATHING Last Admin: 09/20/18 13:24 Dose: 2.5 mg Documented by: Albuterol/Ipratropium (Duoneb) 3 ml INH RESP.Q4H.[place] [facility] Last Admin: 09/22/18 09:36 Dose: 3 ml Documented by: Amlodipine Besylate (Norvasc) 2.5 mg PO DAILY [facility] Last Admin: 09/22/18 10:04 Dose: Not Given Documented by: Atorvastatin Calcium (Lipitor) 20 mg PO QHS [facility] Last Admin: 09/21/18 21:09 Dose: Not Given Documented by: Benzonatate (Tessalon) 100 mg PO TID PRN PRN Reason: COUGH Last Admin: 09/21/18 19:54 Dose: 100 mg Documented by: Budesonide (Pulmicort) 0.5 mg INH 1000,2200 [facility] Last Admin: 09/22/18 09:36 Dose: 0.5 mg Documented by: Nicotine (Nicotine 14mg) 1 patch TD Q24H [facility] Last Admin: 09/21/18 17:05 Dose: 1 patch Documented by: Nystatin () 5 ml PO QID [facility] Last Admin: 09/22/18 10:04 Dose: 5 ml Documented by: Pantoprazole Sodium (Protonix) 40 mg PO DAILYAC [facility] Last Admin: 09/22/18 06:04 Dose: 40 mg Documented by: Pramipexole Dihydrochloride (Pramipexole Dihydrochloride) 0.25 mg PO QHS [facility] Last Admin: 09/21/18 21:08 Dose: Not Given Documented by: Prednisone (Prednisone 20mg) 40 mg PO DAILYWM [facility] Stop: 09/26/18 08:01 Last Admin: 09/22/18 07:52 Dose: 40 mg Documented by: Tramadol HCl (Ultram) 50 mg PO Q6H PRN PRN Reason: PAIN - MILD TO MODERATE (1-7) Last Admin: 09/22/18 07:50 Dose: 50 mg Documented by: AMI Plan - Labs Result Diagrams: 09/22/18 06:12 09/22/18 06:12
[2018-09-22] MEDS: NICOTINE14 MG/24 HOUR PATCH TD SCH (17:27)
[2018-09-22] MEDS: PRAMIPEXOLE DI-HCL 0.25 MG TABLET PO SCH ×2 (18:59→21:09)
[2018-09-22] MEDS ORDERED: NYSTATIN 100,000 UNITS/ML 5ML CUP PO PRN (19:27)
[2018-09-22] MEDS: BENZONATATE 100 MG CAPSULE PO PRN (20:17)
[2018-09-22] MEDS: ATORVASTATIN 20 MG TABLET PO SCH (21:09)
[2018-09-23] MEDS: TRAMADOL HCL 50 MG TABLET PO PRN (03:56)
[2018-09-23] MEDS: IPRATROPIUM/ALBUTEROL (0.5MG/3MG) NEB INH SCH ×2 (05:49→09:50)
[2018-09-23] MEDS: BENZONATATE 100 MG CAPSULE PO PRN (05:57)
[2018-09-23] MEDS: PANTOPRAZOLE SODIUM 40 MG TABLET PO SCH (06:04)
--- NOTE | 2018-09-23 09:34 | Discharge Summary ---
Providers Discharge Summary Date: 09/23/18 Date of admission: 09/20/18 20:30 Attending physician: CAMILO CHAN Physical Exam - Vital Signs Vital Signs: Vital Signs - Last 24 Hrs Temp Pulse Pulse Resp BP Pulse Ox 09/23/18 07:00 97.8 F 90 18 151/81 90 L 09/23/18 05:50 88 16 94 L 09/22/18 21:49 81 16 94 L 09/22/18 20:21 18 09/22/18 20:00 98.0 F 80 24 168/83 91 L 09/22/18 18:42 81 18 96 09/22/18 15:00 96.8 F L 87 18 134/84 96 09/22/18 14:41 84 18 97 09/22/18 09:37 89 18 - General General Appearance: Alert, Oriented x3, Cooperative, Mild distress (with ambulation) Limitations: No limitations - Head Head exam: Atraumatic, Normocephalic, Normal inspection Head exam detail: negative: Abrasion, Contusion, Mishra's sign, General tenderness, Hematoma, Laceration - Eye Eye exam: Normal appearance. negative: Conjunctival injection, Periorbital swelling, Periorbital tenderness, Scleral icterus - ENT Ear exam: negative: Auricular hematoma, Auricular trauma Nasal Exam: negative: Active bleeding, Discharge, Dried blood, Foreign body Mouth exam: negative: Drooling, Laceration, Muffled voice, Tongue elevation - Neck Neck exam: Normal inspection. negative: Meningismus, Tenderness - Respiratory Respiratory exam: Prolonged expiratory. negative: Rhonchi, Stridor - Cardiovascular Cardiovascular Exam: Normal rhythm, Normal heart sounds Peripheral Pulses: 3+: Radial (R), Radial (L), Dorsalis Pedis (R), Dorsalis Pedis (L) - GI/Abdominal GI/Abdominal exam: Soft. negative: Rebound, Rigid, Tenderness - Rectal Rectal exam: Deferred - exam: Deferred - Extremities Extremities exam: Normal inspection. negative: Pedal edema, Tenderness - Back Back exam: Denies: CVA tenderness (R), CVA tenderness (L) - Neurological Neurological exam: Alert, Normal gait, Oriented X3 - Psychiatric Psychiatric exam: Normal affect, Normal mood - Skin Skin exam: Normal color. negative: Abrasion Type of lesion: negative: abrasion Hospitalization - Hospitalization Admission Diagnosis: COPD exacerbation. Hypoxia - Problem List/Discharge Diagnosis (1) Hypoxia Current Visit: Yes Status: Acute Base Code: R09.02 - HYPOXEMIA Comment: 09/23/18 - 2/2 COPD exacerbation -85% on RA with ambulation -Home O2 qualifier completed -Continue nebulizers q. 4 hours while awake (2) COPD exacerbation Current Visit: Yes Status: Acute Base Code: J44.1 - CHRONIC OBSTRUCTIVE PULMONARY DISEASE W (ACUTE) EXACERBATION Comment: 09/23/18 -SpO2 dropped to 87% when ambulating,maintaining O2 at 96% on 2L -Duonebs q. 4 hours while awake, Albuterol q6H PRN -D/C Prednisone PO daily, Rocephin 1 g IV daily -Nebulizer machine and Duo-nebs ordered for home. (3) Dry cough Current Visit: Yes Status: Acute Base Code: R05 - COUGH Comment: 09/23/18 -Continue Tessalon Perles 100mg PO TID PRN (4) DVT prophylaxis Current Visit: Yes Status: Acute Base Code: Z29.9 - ENCOUNTER FOR PROPHYLACTIC MEASURES, UNSPECIFIED Comment: 09/23/18 -High risk d/t age and comorbidities -Ambulating frequently -SCDs while in bed (5) Full code status Current Visit: Yes Status: Acute Base Code: Z78.9 - OTHER SPECIFIED HEALTH STATUS Comment: 09/23/18 -Full code this admission - Hospitalization Course Hospital Course: Kim Garcia is a 73 y.o. F who presented to the ED d/t DMITRY which began in the morning on 09/18/18. Reported that she had a wet cough with lots of sputum and a sore throat as well. Denied fever/chills. Hx of COPD with 1 exacerbation in the past, stopped smoking 1 month ago. Does not follow with a copy coordinator. Does not use home oxygen or nebulizers. Denies having been around any known sick contacts. Of note, pt states that she does have a thoracic aortic aneurysm that her PCP is watching. States she was to have a "bunch of CT scans" done today as ordered by PCP. PMHx: COPD, HTN, Thoracic aortic aneurysm, GERD, OA. PCP: Dr. Bruner ED Course Vitals: T 98.6, HR 101, RR 24, BP 145/73, SPO2 86% on RA CXR: Hyperinflation, c/w COPD Labs: Unremarkable. WBC 7.1, GFR >60, Trops Neg. EKG: NSR, no acute ST-T wave changes present 09/19/18 1730 Vitals: T 99.4, HR 89, BP 123/67, RR 20, SpO2 92% on 3L NC Sitting in bed, eating dinner. A&Ox3. Reports that she feels just slightly better than she did earlier today and yesterday. Refusing to take Norvasc and Lipitor as she was recently placed on these by her PCP and feels that these are causing her problems. Wants to go home but SPO2 92% on 3L O2. Reports that cough is dry right now, hasn't been coughing anything up since coming to the [facility]. Doesn't feel any nasal congestion. 09/20-09/22: The patient was maintained on supplemental oxygen via nasal cannula but her work of breathing increased and she was in more respiratory distress. S he had saturations in the 80s and NIPPV therapy was ordered but the patient refused. She was continued on Prednisone, Duonebs, Rocephin IV and Tessalon perles. The patient's status improved but she require continuous oxygen therapy to maintain saturations. 09/23/18: The patient is sitting at bedside this morning and reports that she still feels somewhat short of breath. She has not been wearing her oxygen consistently and says that she doesn't feel she has to wear it all the time. The patient is currently maintaining saturations of > 90% on 2 liters oxygen. Procedures: Imaging and X-Rays 09/19/18 05:24 CHEST 2 VIEWS [RAD] Stat Cardiology Procedures 09/19/18 05:24 EKG NOW Abnormal Labs: Abnormal Lab Results 09/19/18 09/19/18 09/22/18 Range/Units 05:20 05:20 06:12 MCV 97.4 H 99.4 H (81-97) fl MCHC 30.9 L (32-36) g/dl Plt Count 119 L 127 L (130-400) K/uL MPV 13.3 H 12.7 H (7.4-10.4) fl Lymphocytes % 14.8 L (16-45) % Monocytes % 12.9 H (0-9) % Carbon Dioxide (22-29) mmol/L Random Glucose 123 H (74-109) mg/dL 09/22/18 Range/Units 06:12 MCV (81-97) fl MCHC (32-36) g/dl Plt Count (130-400) K/uL MPV (7.4-10.4) fl Lymphocytes % (16-45) % Monocytes % (0-9) % Carbon Dioxide 36.0 H (22-29) mmol/L Random Glucose (74-109) mg/dL Condition at Discharge: (2) Stable Discharge Medications - Discharge Medications Prescriptions: Ipratropium/Albuterol [Duoneb] 3 ml INH RESP.Q4H.WA #90 ampul.neb Benzonatate [Tessalon Perles] 100 mg PO TID PRN #21 capsule PRN Reason: Cough Home Medications: Ambulatory Orders Omeprazole [Prilosec] 20 mg PO DAILY 11/02/14 [Last Taken Unknown] Tramadol HCl/Acetaminophen [Ultracet Tablet] 1 each PO DAILY PRN 11/02/14 [Last Taken Unknown] Amlodipine Besylate [Norvasc] 5 mg PO DAILY 09/19/18 [Last Taken Unknown] Atorvastatin Calcium 40 mg PO DAILY 09/19/18 [Last Taken Unknown] Fluticasone Propion/Salmeterol [Fluticasone-Salmeterol 250-50] 2 puff INH DAILY 09/19/18 [Last Taken Unknown] Pramipexole Di-HCl [Mirapex] 0.25 mg PO DAILY 09/19/18 [Last Taken Unknown] Tiotropium [place] [Spiriva Respimat] 1 puff INH DAILY 09/19/18 [Last Taken Unknown] Benzonatate [Tessalon Perles] 100 mg PO TID PRN #21 capsule 09/23/18 [Last Taken Unknown] Ipratropium/Albuterol [Duoneb] 3 ml INH RESP.Q4H.[place] #90 ampul.neb 09/23/18 [Last Taken Unknown] Prednisone [Prednisone 20Mg] 40 mg PO DAILYWM tab 09/23/18 [Last Taken Unknown] Tramadol HCl [Ultram] 50 mg PO Q6H PRN tablet 09/23/18 [Last Taken Unknown] Discharge Plan - Discharge Instructions Diet at Discharge: Low Fat, Low Cholesterol, Low Salt Diet Additional Instructions: Follow up with Adenkie Adames NP at Dr. Bruner's office on SaturdaySeptember 24 at 1:50PM Use Duonebs as instructed in addition to your home inhalers. Wear oxygen at all times and titrate to 2 liters. Quality Measures - Quality Measures Quality Measures: Advance Directives, Documentation of Current Medications in Medical Record, Elder Maltreatment Screen and Follow-Up Plan, Screening for High Blood Pressure and F/U Documented - Current Medications Quality Measure: Measure #130: Documentation of Current Medications Documentation of Current Medications: <Current Medications Documented/Reviewed> [G3430] - Blood Pressure Screening Quality Measure: Screening for High Blood Pressure and Follow-Up Documented Does Patient Have Any of the Following: Active Dx of HTN Blood Pressure Classification: Hypertensive Reading Systolic Measurement: 145 Diastolic Measurement: 73 Screening for High Blood Pressure: Patient Exclusion, Hx of HTN [G9744] - Advance Directives Quality Measure: Measure #47: Care Plan Advance Directives Established: No Advance Directives Information Provided To Patient: No Advance Directives on File: No Living Will: No Power of Chemical Tester: No Advance Care Planning: <Care Plan/Decision Maker Not Decided; Discussed & Documented> [[id number]] - Elder Abuse Suspicion Index Screening: Elder Abuse Suspicion Index Screening Rely on people for bathing, dressing, shopping, banking, etc: No Prevented from getting food, clothes, medication, etc: No Made to feel shamed or threatened by someone: No Forced to sign papers or use money against will: No Feel afraid, touched in ways not wanted or hurt physically: No Poor eye contact, withdrawn, malnourished, cuts or bruises: No Screening Result: Negative result EASI Reference Information: Mario ODELL, Garrett C, Margot D, Ramya Vigil.Development and validation of a tool to assist physicians identification of elder abuse: The Elder Abuse Suspicion Index (EASI ). Journal of Elder Abuse and Neglect, 2008; 20 (3): 276-300. - Elder Maltreatment Screen Quality Measures: Elder Maltreatment Screen and Follow-Up Plan Elder Maltreatment Screen: <Negative, No Follow-Up Plan Required> [G8734]
[2018-09-23] MEDS: AMLODIPINE BESYLATE 5MG TAB PO SCH (09:35)
[2018-09-23] MEDS: PREDNISONE 20 MG TAB PO SCH (09:44)
[2018-09-23] MEDS: BUDESONIDE 0.5 MG/2 ML INH SCH (10:02)
== END 2018-09-23 13:05 | disposition home health service (06) | DRG 192 ==
LOC: ER 05:11 → MEDSURG 07:12 → OBSVTOIN 09-20 20:30
PROVIDERS: ADMIT Internal Medicine; ATTEND Internal Medicine
DX: J44.1 Chronic obstructive pulmonary disease with (acute) exacerbation (principal); R09.02 Hypoxemia; R05 Cough; I71.2 Thoracic aortic aneurysm, without rupture; I10 Essential (primary) hypertension; K21.9 Gastro-esophageal reflux disease without esophagitis; M19.90 Unspecified osteoarthritis, unspecified site; Z87.891 Personal history of nicotine dependence; Z29.9 Encounter for prophylactic measures, unspecified
CPT/HCPCS: 85025; 80053; 84484; 71046; 94640 ×4; 94761; 93005; 93010; G0378 ×17; J0696; 80048; 85027; 96374; 99223; 99233; 99239; 99285; J2930; J7512; J7613